=== PATIENT | female | born 1930 | race Caucasian/White ===

== ENCOUNTER 2017-08-19 09:41 | Emergency (ER) | payer OTHER ==
[~2017-08-19] VITALS: Ht 147.3 cm; Wt 68.0 kg
[~2017-08-19 09:41] MED LIST: ADULT LOW DOSE81 MG PO; AMBIEN 10 MG TA10 MG PO; AMIODARONE HCL100 MG PO; AMLODIPINE BESY10 MG PO; AMLODIPINE BESYL5 MG PO; CALCIUM; CALCIUM 600 +1 EAC1 PO; CELEXA; CIPROFLOXACIN500 M1 PO; COZAAR100 MG PO; DETROL LA2 MG PO; DETROL2 M1 PO; FAMCYCLOVIR 50500 M1 PO; FAMOTIDINE; FAMOTIDINE20 MG PO; FOSAMAX 70 MG T70 M1 PO; HYDROCODON-ACE1 EACH PO; IMODIUM ADVANC1 EAC1; METOPROLOL SUCC50 MG PO; MULTIVITAMINS PO; NEURONTIN PO; OXYBUTYNIN 5 MG5 M2 PO; OYSTER SHELL 51 EACH PO; PACERONE 200 M200 M1 PO; PEPCID20 MG PO; PLAVIX 75 MG TA75 MG PO; POTASSIUM20 PO; PRILOSEC40 MG PO; PROMETHAZINE/C118 ML PO; PROTONIX 20 MG20 MG PO; QUESTRAN PACKET4 GM PO; SIMVASTATIN; TOPROL XL50 MG PO; TRIAMTERENE-HC1 EAC1 PO; TYLENOL325 MG PO; VITAMIN D400 UNI1 PO; ZOCOR 20 MG TAB20 M1 PO
[2017-08-19] MEDS ORDERED: TRAMADOL 50 MG50 MG PO (10:23)
== END 2017-08-19 11:40 | disposition home or self-care (01) ==
LOC: ER 09:41
DX: M54.41 Lumbago with sciatica, right side (principal); I10 Essential (primary) hypertension; Z98.890 Other specified postprocedural states; Z88.5 Allergy status to narcotic agent

== ENCOUNTER 2020-04-17 14:35 | Emergency (ER) | payer OTHER ==
[~2020-04-17] VITALS: Ht 152.4 cm; Wt 56.7 kg
--- NOTE | ~2020-04-17 | EMS ---
[address] [address] EMS Patient Care Report Name: ZAK RODRIGUEZ Room #: DEP CARLOS Figueroa#: [id number] Admission: 04/17/20 Attend Phys: Discharge: 04/17/20 Date of : 30 Report #: [id number] THIS REPORT FOR: //name// Report Transmitted: 04/17/2020 21:35 EMS Care Summary [facility] MED-ACT Incident [id number] @ 04/17/2020 14:02 Incident Location [address] [place] [address] Patient ZAK RODRIGUEZ Female, 89 Years 1930 Patient Address [address] [place] [address] Patient History Hypertension (HTN),Stroke/CVA,Chronic Pain, Patient Allergies No known allergies, Patient Medications Oxybutynin, Mirtazapine, Metoprolol, Aspirin, Amiodarone, Losartan, Clonidine, Meloxicam, Acetaminophen, Melatonin, Chief Complaint Head Injury Disposition Transported No Lights/[place] Dispatch Reason Falls Transported To [facility] Narrative [id number] arrived on scene to find a 89yo female sitting in her chair being [address] [address] EMS Patient Care Report Name: ZAK RODRIGUEZ Room #: DEP Henry#: [id number] Admission: 04/17/20 Attend Phys: Discharge: 04/17/20 Date of : 30 Report #: [id number] assessed by fire crew on scene. Pt was alert and oriented on arrival. Pt was eating and had fallen from her chair to the floor. Pt had a small laceration to her right eyebrow on the outside corner of her eye. Bleeding was controlled from the laceration. Other than some tenderness to the laceration pt did not have any other complaints. On further assessment pt did not have pain anywhere else. Pt ambulated to the cot and was then moved to the ambulance. In the ambulance vital signs were monitored and pt transported to the ER. At the ER care was transferred to the ER staff. Initial Vitals @14:26P: 55,R: 16,BP: 178/76,SpO2: 97, @14:28P: 54,R: 16,SpO2: 96, @14:21P: 55,R: 14,BP: 206/95,Pain: 0/10,GCS: 15,SpO2: 96,Revised Trauma: 12, @PTAP: 54,R: 14,BP: 172/71,GCS: 15,Temp: 98.7F,SpO2: 94,Revised Trauma: 12, Assessments @14:15MENTAL:Person Oriented,Time Oriented,Event Oriented,Place Oriented,SKIN:HEENT:Head/Face: Other,Head/Face: LAC,Neck/Airway: No Abnormalities,LUNG SOUNDS:ABDOMEN:PELVIS//GI:EXTREMITIES:PULSE:NEURO:No Abnormalities, Impression Injury Procedures @PTASurgical Mask on PatientResponse: Unchanged@14:15ALS AssessmentResponse: UnchangedSucceeded Timeline [facility] [employer]ER,Surgical Mask on Patient,Response: Unchanged [facility] [employer]TE[employer]ER,BP: 172/71 M,PULSE: 54,RR: 14 R,SPO2: 94 Ox,ETCO2: ,BG: ,PAIN: ,GCS: 15, 13:53,Call Received 13:53,Psap Call 14:02,Dispatched 14:03,En Route 14:12,On Scene 14:14,At Patient 14:15,ALS Assessment,Response: UnchangedSucceeded, 14:21,BP: 206/95 M,PULSE: 55,RR: 14 R,SPO2: 96 Ox,ETCO2: ,BG: ,PAIN: 0,GCS: 15, 14:21,Depart Scene 14:26,BP: 178/76 M,PULSE: 55,RR: 16 R,SPO2: 97 Ox,ETCO2: ,BG: ,PAIN: ,GCS: , 14:28,BP: / M,PULSE: 54,RR: 16 R,SPO2: 96 Ox,ETCO2: ,BG: ,PAIN: ,GCS: , 14:32,At Destination 14:47,Call Closed Disclaimer [address] [address] EMS Patient Care Report Name: ZAK RODRIGUEZ Room #: DEP CARLOS Figueroa#: [id number] Admission: 04/17/20 Attend Phys: Discharge: 04/17/20 Date of : 30 Report #: [id number] v1.1 Copyright 2020 [employer] This EMS Care Summary contains data elements from the applicable legal record (which may be displayed differently). It is designed to provide pertinent information for the following purposes: continuity of care, clinical quality, and state data reporting. The complete legal record is available to ED staff and administrators of the receiving hospital in ES's Patient Tracker. All data is provided "as is."
[~2020-04-17 14:35] MED LIST changes: +TRAMADOL 50 MG50 MG PO
[2020-04-17 15:30] VITALS: BP 170/68
== END 2020-04-17 15:30 | disposition home or self-care (01) ==
LOC: ER 14:35
DX: S01.81XA Laceration without foreign body of other part of head, initial encounter (principal); I10 Essential (primary) hypertension; Z90.49 Acquired absence of other specified parts of digestive tract; Z98.890 Other specified postprocedural states; Z79.82 Long term (current) use of aspirin; Z79.899 Other long term (current) drug therapy; Z88.5 Allergy status to narcotic agent; W07.XXXA Fall from chair, initial encounter; Y93.89 Activity, other specified; Y92.128 Other place in nursing home as the place of occurrence of the external cause; Y99.8 Other external cause status

== ENCOUNTER 2020-06-07 08:31 | Emergency (ER) | payer OTHER ==
[~2020-06-07] VITALS: Ht 152.4 cm; Wt 68.0 kg
--- NOTE | ~2020-06-07 | EMS ---
[facility] [address] [place] [address] EMS Patient Care Report Name: ZAK RODRIGUEZ Room #: DEP CARLOS Figueroa#: [id number] Admission: 06/07/20 Attend Phys: Discharge: 06/07/20 Date of : 30 Report #: [id number] THIS REPORT FOR: //name// Report Transmitted: 06/09/2020 17:04 EMS Care Summary [facility] MED-ACT Incident [id number] @ 06/07/2020 07:45 Incident Location [address] [place] [address] Patient ZAK RODRIGUEZ Female, 89 Years 1930 Patient Address [address] [place] [address] Patient History Hypertension (HTN),Stroke/CVA, Patient Allergies No known allergies, Chief Complaint "I fell and am not sure what happened" Disposition Transported No Lights/[place] Dispatch Reason Falls Transported To [facility] Narrative C- "I fell and am not sure what happened" H- Pt tells EMS that she fell last night and is not sure how she fell or how long she was on the ground. She says that she has no pain or complaint but is [facility] [address] [place] [address] EMS Patient Care Report Name: ZAK RODRIGUEZ Room #: DEP CARLOS Figueroa#: [id number] Admission: 06/07/20 Attend Phys: Discharge: 06/07/20 Date of : 30 Report #: [id number] just not sure what happened. Assisted living staff tells EMS that she has dementia but they are not sure what his normal mental status is due to not seeing her too often. Pt's family is contacted and tells EMS that this is her normal mental status but would like her to be transported for assessment. Pt has pain to right shoulder, wrist, and head but only on palpation and says that she does not think she needs to go to the hospital but agrees to it. Pt denies headache, dizziness, NVD, weakness, shortness of breath, chest pain, recent fever or illness, or any other pain or complaint at this time. A- As noted in assessment tab. R- Primary and secondary assessment, vitals, BG are obtained and pt is moved to the cot under assisted stand and pivot. Pt is secured in semi-quiñonez's position using seat belts and moved to the ambulance without incident. ECG and temperature is obtained. T- Pt is transported to [facility] while vitals and ECG are continually monitored. Biocom is given enourte and pt is transported without incident. D- Pt arrives at [place] without change in condition and taken to ER room 9 and moved to hospital bed using sheet drag. Pt care is transferred to ER nursing staff and pt is left with bed rails up. Initial Vitals @08:16P: 178,SpO2: 97,[place] Suspected: false @08:19P: 99,R: 18,BP: 204/78,Pain: 0/10,GCS: 14,SpO2: 97,Revised Trauma: 12,[place] Suspected: false @08:17P: 93,R: 18,BP: 216/84,Pain: 0/10,GCS: 14,Temp: 97.3F,SpO2: 98,Revised Trauma: 12,[place] Suspected: false @07:59P: 78,R: 18,BP: 165/84,Pain: 0/10,GCS: 14,Glucose: 147,SpO2: 98,Revised Trauma: 12, Assessments @07:57MENTAL:Person Oriented,Event Oriented,Place Oriented,SKIN:HEENT:Head/Face: Other,Neck/Airway: No Abnormalities,LUNG SOUNDS:General: No Abnormalities,ABDOMEN:General: No Abnormalities,PELVIS//GI:No Abnormalities,EXTREMITIES:Right Arm: Other,Capillary Refill: Right Upper: < 2 Sec,Left Arm: No Abnormalities,Left Leg: No Abnormalities,Right Leg: No Abnormalities,PULSE:Radial: 2+ Normal,NEURO:No Abnormalities, Impression Extremity Pain [address] [address] EMS Patient Care Report Name: ZAK RODRIGUEZ [id number] Admission: 06/07/20 Attend Phys: Discharge: 06/07/20 Date of : 30 Report #: [id number] Timeline 07:44,Call Received 07:44,Psap Call 07:45,Dispatched 07:47,En Route 07:54,On Scene 07:56,At Patient 07:59,BP: 165/84 M,PULSE: 78,RR: 18 R,SPO2: 98 Ox,ETCO2: ,B,PAIN: 0,GCS: 14, 08:16,BP: / M,PULSE: 178,RR: R,SPO2: 97 Ox,ETCO2: ,BG: ,PAIN: ,GCS: , 08:17,Depart Scene 08:17,BP: 216/84 M,PULSE: 93,RR: 18 R,SPO2: 98 Ox,ETCO2: ,BG: ,PAIN: 0,GCS: 14, 08:19,BP: 204/78 M,PULSE: 99,RR: 18 R,SPO2: 97 Ox,ETCO2: ,BG: ,PAIN: 0,GCS: 14, 08:25,At Destination 08:41,Call Closed Disclaimer v1.1 Copyright 2020 [employer] This EMS Care Summary contains data elements from the applicable legal record (which may be displayed differently). It is designed to provide pertinent information for the following purposes: continuity of care, clinical quality, and state data reporting. The complete legal record is available to ED staff and administrators of the receiving hospital in [employer]'s Patient Tracker. All data is provided "as is."
--- NOTE | ~2020-06-07 | EMS ---
[address] [address] EMS Patient Care Report Name: ZAK RODRIGUEZ Room #: REG CARLOS Figueroa#: [id number] Admission: 06/07/20 Attend Phys: Discharge: Date of : 30 Report #: [id number] THIS REPORT FOR: //name// Report Transmitted: 06/07/2020 08:16 EMS Care Summary [facility] MED-ACT Incident [id number] @ 06/07/2020 07:45 Incident Location [address] [place] [address] Patient ZAK RODRIGUEZ Female, 89 Years 1930 Patient Address [address] [place] [address] Patient History Hypertension (HTN),Stroke/CVA, Patient Allergies No known allergies, Chief Complaint "I fell and am not sure what happened" Disposition Transported No Lights/[place] Dispatch Reason Falls Transported To [facility] Narrative C- "I fell and am not sure what happened" H- Pt tells EMS that she fell last night and is not sure how she fell or how long she was on the ground. She says that she has no pain or complaint but is [facility] [address] [place] [address] EMS Patient Care Report Name: ZAK RODRIGUEZ Room #: REG Henry#: [id number] Admission: 06/07/20 Attend Phys: Discharge: Date of : 30 Report #: [id number] just not sure what happened. Assisted living staff tells EMS that she has dementia but they are not sure what his normal mental status is due to not seeing her too often. Pt's family is contacted and tells EMS that this is her normal mental status but would like her to be transported for assessment. Pt has pain to right shoulder, wrist, and head but only on palpation and says that she does not think she needs to go to the hospital but agrees to it. Pt denies headache, dizziness, NVD, weakness, shortness of breath, chest pain, recent fever or illness, or any other pain or complaint at this time. A- As noted in assessment tab. R- Primary and secondary assessment, vitals, BG are obtained and pt is moved to the cot under assisted stand and pivot. Pt is secured in semi-quiñonez's position using seat belts and moved to the ambulance without incident. ECG and temperature is obtained. T- Pt is transported to [facility] while vitals and ECG are continually monitored. Biocom is given enourte and pt is transported without incident. D- Pt arrives at [facility] without change in condition and taken to ER room 9 and moved to hospital bed using sheet drag. Pt care is transferred to ER nursing staff and pt is left with bed rails up. Initial Vitals @08:16P: 178,SpO2: 97,[place] Suspected: false @08:19P: 99,R: 18,BP: 204/78,Pain: 0/10,GCS: 14,SpO2: 97,Revised Trauma: 12,[place] Suspected: false @08:17P: 93,R: 18,BP: 216/84,Pain: 0/10,GCS: 14,Temp: 97.3F,SpO2: 98,Revised Trauma: 12,[place] Suspected: false @07:59P: 78,R: 18,BP: 165/84,Pain: 0/10,GCS: 14,Glucose: 147,SpO2: 98,Revised Trauma: 12, Assessments @07:57MENTAL:Person Oriented,Event Oriented,Place Oriented,SKIN:HEENT:Head/Face: Other,Neck/Airway: No Abnormalities,LUNG SOUNDS:General: No Abnormalities,ABDOMEN:General: No Abnormalities,PELVIS//GI:No Abnormalities,EXTREMITIES:Right Arm: Other,Capillary Refill: Right Upper: < 2 Sec,Left Arm: No Abnormalities,Left Leg: No Abnormalities,Right Leg: No Abnormalities,PULSE:Radial: 2+ Normal,NEURO:No Abnormalities, Impression Extremity Pain [facility] [address] [place] [address] EMS Patient Care Report Name: ZAK RODRIGUEZ Room #: REG CARLOS Figueroa#: [id number] Admission: 06/07/20 Attend Phys: Discharge: Date of : 30 Report #: [id number] Timeline 07:44,Call Received 07:44,Psap Call 07:45,Dispatched 07:47,En Route 07:54,On Scene 07:56,At Patient 07:59,BP: 165/84 M,PULSE: 78,RR: 18 R,SPO2: 98 Ox,ETCO2: ,B,PAIN: 0,GCS: 14, 08:16,BP: / M,PULSE: 178,RR: R,SPO2: 97 Ox,ETCO2: ,BG: ,PAIN: ,GCS: , 08:17,Depart Scene 08:17,BP: 216/84 M,PULSE: 93,RR: 18 R,SPO2: 98 Ox,ETCO2: ,BG: ,PAIN: 0,GCS: 14, 08:19,BP: 204/78 M,PULSE: 99,RR: 18 R,SPO2: 97 Ox,ETCO2: ,BG: ,PAIN: 0,GCS: 14, 08:25,At Destination 08:41,Call Closed Disclaimer v1.1 Copyright 2020 [employer] This EMS Care Summary contains data elements from the applicable legal record (which may be displayed differently). It is designed to provide pertinent information for the following purposes: continuity of care, clinical quality, and state data reporting. The complete legal record is available to ED staff and administrators of the receiving hospital in [employer]'s Patient Tracker. All data is provided "as is."
[2020-06-07 09:14] LABS: HEMOGLOBIN 12.6 gm/dL (12.0-15.0); MCH 30.4 pg (26.0-34.0); MCHC 33.3 g/dL (28.0-37.0); MCV 91.1 fL (80.0-100.0); PLATELET COUNT 243 thou/uL (150-400); RBC 4.17 mil/uL (4.20-5.00); RDW 12.8 % (10.5-14.5); WBC 15.5 thou/uL (4.0-11.0)
[2020-06-07 09:20] LABS: ANION GAP 11 mmol/L (7-16); BUN 13 mg/dL (7-18); CALCIUM 8.9 mg/dL (8.5-10.1); CHLORIDE 97 mmol/L (98-107); CO2 26 mmol/L (21-32); GLUCOSE 139 mg/dL (74-106); POTASSIUM 3.8 mmol/L (3.5-5.1); SODIUM 134 mmol/L (136-145)
[2020-06-07 09:30] LABS: ALBUMIN 3.1 g/dL (3.4-5.0); SGOT 30 U/L (15-37); SGPT 20 U/L (14-59); TOTAL BILIRUBIN 1.7 mg/dL (0.2-1.0); TROPONIN-I <0.06 ng/mL (<0.06)
[2020-06-07] MEDS ORDERED: CATAPRES0.1 MG PO (09:42)
[2020-06-07] MEDS ORDERED: MELOXICAM7.5 MG PO (09:42)
[2020-06-07] MEDS ORDERED: MELATONIN3 M1 PO (09:42)
[2020-06-07 09:43] LABS: URINE BILIRUBIN NEGATIVE (Negative); URINE BLOOD 3+ (Negative); URINE CLARITY CLOUDY; URINE COLOR YELLOW; URINE GLUCOSE-RANDOM* NEGATIVE (Negative); URINE KETONES 1+ (Negative); URINE LEUKOCYTES-REFLEX NEGATIVE (Negative); URINE NITRITE-REFLEX POSITIVE (Negative); URINE PROTEIN (DIPSTICK) 2+ (Negative); URINE SPECIFIC GRAVITY >= 1.030 (1.005-1.035); URINE UROBILINOGEN 0.2 E.U./dl (0.2-1.0)
[2020-06-07 09:49] LABS: ABSOLUTE NEUTROPHILS 13.2 thou/uL (1.4-8.2)
[2020-06-07 10:00] LABS: CASTS None Seen /LPF (None Seen); CRYSTALS None Seen /LPF (None Seen); URINE WBC-REFLEX 6-15 Few /HPF (0-5)
[2020-06-07 10:01] LABS: BACTERIA-REFLEX >30 Many /HPF (None Seen); SQUAMOUS 0-3 Few /LPF (0-3)
[2020-06-07 10:02] LABS: URINE RBC 0-2 Rare /HPF (0-2)
[2020-06-07] MEDS ORDERED: MACROBID 100 M100 M1 PO (10:59)
[2020-06-07] MEDS ORDERED: TYLENOL325 M1 PO (10:59)
[2020-06-07 11:23] VITALS: BP 182/73
--- NOTE | 2020-06-08 07:45 | EKG ---
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 : 1930 Requested By: Bartolo Montgomery Order Number: [id number] MD: Tony Briggs Measurements Intervals Whitney Rate: 69 P: -55 IL: 62 QRS: -35 QRSD: 106 T: -17 QT: 454 QTc: 487 Interpretive Statements Sinus or ectopic atrial rhythm Short IL interval Left ventricular hypertrophy Borderline T abnormalities, inferior leads Borderline prolonged QT interval Compared to ECG 03/10/2017 12:12:49 Ectopic atrial rhythm now present Short IL interval now present Left ventricular hypertrophy now present Sinus rhythm no longer present T-wave abnormality still present Electronically Signed On 06-08-2020 7:44:57 PARKER by Tony Briggs [email or web address] <ELECTRONICALLY SIGNED> By: Tony Briggs MD, FAC 06/08/20 0744 0 Tony Briggs MD, [facility] /EPI
== END 2020-06-07 11:24 ==
LOC: ER 08:31
PROVIDERS: Emergency Medicine
DX: S51.811A Laceration without foreign body of right forearm, initial encounter (principal); S51.011A Laceration without foreign body of right elbow, initial encounter; S41.011A Laceration without foreign body of right shoulder, initial encounter; S00.83XA Contusion of other part of head, initial encounter; N39.0 Urinary tract infection, site not specified; R79.89 Other specified abnormal findings of blood chemistry; I10 Essential (primary) hypertension; Z88.5 Allergy status to narcotic agent; Z79.82 Long term (current) use of aspirin; Z79.899 Other long term (current) drug therapy; W19.XXXA Unspecified fall, initial encounter; Y93.89 Activity, other specified; Y92.89 Other specified places as the place of occurrence of the external cause; Y99.8 Other external cause status